=== PATIENT | male | born 1980 | race Caucasian/White ===

== ENCOUNTER → 2018-07-09 | Emergency (ER) | payer MEDICAID ==
[~2018-07-09] VITALS: Ht 182.9 cm; Wt 76.7 kg
[~2018-07-09] MED LIST: FAMOTIDINE (20 MG) 20 MG TABLET ONE; FAMOTIDINE (20 MG) 20 MG TABLET PO ONE; IV NS 0.9% 1,000 ML BAG IV ONE; KETOROLAC TROMETHAMINE 15 MG/ML VIAL ONE; KETOROLAC TROMETHAMINE INJ 30 MG/ML VIAL IV ONE; PROCHLORPERAZINE EDISYLATE 10 MG/2 ML VIAL IVP ONE; PROCHLORPERAZINE EDISYLATE 10 MG/2 ML VIAL ONE; diphenhydrAMINE HCL 50 MG/ML VIAL IV ONE; diphenhydrAMINE HCL 50 MG/ML VIAL ONE
--- NOTE | 2018-07-09 13:20 | NUR ---
PT BIB SELF, A&OX4 C/O N/V, "DIFFICULTY BREATHING ON AND OFF," DIZINESS. PLACED ON MONITOR. WILL MONITOR.
--- NOTE | 2018-07-09 13:25 | NUR ---
DR REARDON AT BEDSIDE FOR EVAL.
[2018-07-09 13:53] LABS: BASOPHILS % (AUTO) 0.6 % (0.0-2.0); EOSINOPHILS % (AUTO) 2.5 % (0.0-6.0); HEMATOCRIT 52 % (39-51); HEMOGLOBIN 17.7 g/dL (13.5-17.5); LYMPHOCYTES # (AUTO) 0.9 /CMM (0.8-4.8); LYMPHOCYTES % (AUTO) 21.4 % (20.0-44.0); MEAN CORPUSCULAR HGB CONC 34 g/dl (31.0-36.0); MEAN CORPUSCULAR VOLUME 92 fL (80-96); MONOCYTES # (AUTO) 0.5 /CMM (0.1-1.30); MONOCYTES % (AUTO) 10.5 % (2.0-12.0); NEUTROPHILS # (AUTO) 2.9 /CMM (1.8-8.9); PLATELET COUNT (AUTO) 265 /CMM (150-450); RED BLOOD CELL COUNT(AUTO) 5.67 MIL/uL (4.5-6.0); WHITE BLOOD COUNT (AUTO) 4.4 K/uL (4.3-11.0)
[2018-07-09 14:13] LABS: CALCIUM, SERUM 9.4 mg/dL (8.5-10.1); CREATININE 0.8 mg/dL (0.6-1.3); POTASSIUM 3.9 mmol/L (3.5-5.1)
[2018-07-09 14:37] LABS: ALBUMIN 4.7 g/dL (3.4-5.0); BILIRUBIN,DIRECT 0.2 mg/dL (0.0-0.2); BILIRUBIN,TOTAL 1.1 mg/dL (0.2-1.0); TOTAL PROTEIN, SERUM 8.6 g/dL (6.4-8.2)
--- NOTE | 2018-07-09 15:15 | NUR ---
EFFECTIVE MANAGEMENT OF SYMPTOMS PER PT. IVF INFUSING WELL.
[2018-07-09 16:00] VITALS: BP 110/58
--- NOTE | 2018-07-09 16:00 | NUR ---
IV removed. Catheter intact and site benign. Pressure and 4x4 applied to site. No bleeding noted.Patient discharged to home in stable condition. Written and verbal after care instructions given. Patient verbalizes understanding of instruction.
== END | disposition home or self-care (01) ==
LOC: ER 13:12
DX: S06.0X0A Concussion without loss of consciousness, initial encounter (principal); R42 Dizziness and giddiness; R11.2 Nausea with vomiting, unspecified; E86.0 Dehydration; G89.29 Other chronic pain; K56.1 Intussusception; Z88.8 Allergy status to other drugs, medicaments and biological substances; W22.8XXA Striking against or struck by other objects, initial encounter; Y93.89 Activity, other specified; Y92.89 Other specified places as the place of occurrence of the external cause; Y99.8 Other external cause status
CPT/HCPCS: 36415; 80048-TC; 80076-TC; 83690-TC; 85025-TC; A4606; J0780; J1200; J1885; Z7610

== ENCOUNTER 2018-08-28 19:11 | Emergency (ER) | payer MEDICAID | END 2018-08-28 19:47 | disposition left against medical advice (07) | LOC: ER 19:15 | DX: Z53.21 Procedure and treatment not carried out due to patient leaving prior to being seen by health care provider (principal) ==

== ENCOUNTER 2018-08-29 12:40 | Emergency (ER) | payer MEDICAID ==
[~2018-08-29] VITALS: Ht 182.9 cm; Wt 72.6 kg
[2018-08-29 12:40] VITALS: BP 179/89
== END 2018-08-29 13:29 | disposition home or self-care (01) ==
LOC: ER 12:43
DX: S00.11XA Contusion of right eyelid and periocular area, initial encounter (principal); G89.29 Other chronic pain; R42 Dizziness and giddiness; K56.1 Intussusception; Z98.890 Other specified postprocedural states; Z88.8 Allergy status to other drugs, medicaments and biological substances; W22.8XXA Striking against or struck by other objects, initial encounter; Y93.89 Activity, other specified; Y92.89 Other specified places as the place of occurrence of the external cause; Y99.8 Other external cause status